=== PATIENT | female | born 1985 | race Two or more races ===

== ENCOUNTER 2017-01-04 08:18 | Emergency (ER) | payer MEDICAID ==
[~2017-01-04] VITALS: Ht 157.5 cm; Wt 75.3 kg
[2017-01-04 09:30] VITALS: BP 111/74
== END 2017-01-04 09:30 | disposition home or self-care (01) ==
LOC: ED 08:18
DX: J03.90 Acute tonsillitis, unspecified (principal)
CPT/HCPCS: J0561; J1100; J1885

== ENCOUNTER 2017-04-06 08:38 | Emergency (ER) | payer MEDICAID ==
[2017-04-06 09:53] LABS: CALCIUM 8.5 mg/dL (8.5-10.1); CARBON DIOXIDE 30.3 mmol/L (21-32); CHLORIDE SERUM 105 mmol/L (98-107); CREATININE SERUM 0.9 mg/dL (0.6-1.0); GFR1 > 60 mL/min; GLUCOSE SERUM 95 mg/dL (74-106); POTASSIUM SERUM 3.9 mmol/L (3.5-5.1); SODIUM SERUM 140 mmol/L (136-145)
[2017-04-06 09:59] LABS: ALBUMIN 3.4 g/dL (3.4-5.0); ALKALINE PHOSPHATASE 80 U/L (46-116); ALT/SGPT 16 U/L (14-59); AST/SGOT 13 U/L (15-37); BILIRUBIN TOTAL 0.3 mg/dL (0.20-1.00); TOTAL PROTEIN, SERUM 7.3 g/dL (6.4-8.2)
[2017-04-06 10:00] LABS: BASOPHIL % 0.4 % (0-2); PLATELET COUNT 307 x10^3mcL (130-400); RED CELL DISTRIBUTION WIDTH 14.4 % (11.5-14.5)
[2017-04-06 10:07] LABS: T3 TOTAL 1.2 ng/mL
[2017-04-06 10:24] LABS: FREE T4 0.91 ng/dL (0.76-1.46); FREE THYROXINE INDEX 2.6 ug/dL (1.4-4.5); T4(THYROXINE) 7.6 ug/dL (4.7-13.3)
[2017-04-06 11:35] VITALS: BP 112/71
[2017-04-06 11:48] LABS: AMPHETAMINE QUAL UR NONE DETECTED (NEG <=1000)
== END 2017-04-06 11:34 | disposition home or self-care (01) ==
LOC: ED 08:38
PROVIDERS: Emergency Medicine
DX: R07.89 Other chest pain (principal); R06.02 Shortness of breath; Z86.2 Personal history of diseases of the blood and blood-forming organs and certain disorders involving the immune mechanism
CPT/HCPCS: 36415; 83880; 84439; Q0092

== ENCOUNTER 2017-10-27 13:41 | Emergency (ER) | payer MEDICAID ==
[~2017-10-27] VITALS: Ht 157.5 cm; Wt 80.3 kg
[2017-10-27 14:02] VITALS: BP 126/72; Ht 157.5 cm; Wt 80.3 kg
== END 2017-10-27 15:23 | disposition home or self-care (01) ==
LOC: ED 13:41
DX: J02.0 Streptococcal pharyngitis (principal); Z86.2 Personal history of diseases of the blood and blood-forming organs and certain disorders involving the immune mechanism
CPT/HCPCS: J1100

== ENCOUNTER 2017-11-12 09:18 | Emergency (ER) | payer OTHER ==
[~2017-11-12] VITALS: Ht 157.5 cm; Wt 81.2 kg
[2017-11-12 09:23] VITALS: Ht 157.5 cm; Wt 81.2 kg
[2017-11-12 10:13] LABS: BASOPHIL % 0.4 % (0-2); PLATELET COUNT 315 x10^3mcL (130-400); RED CELL DISTRIBUTION WIDTH 14.5 % (11.5-14.5)
[2017-11-12 10:24] LABS: CALCIUM 8.4 mg/dL (8.5-10.1); CARBON DIOXIDE 29.9 mmol/L (21-32); CHLORIDE SERUM 107 mmol/L (98-107); CREATININE SERUM 0.9 mg/dL (0.6-1.0); GFR1 > 60 mL/min; GLUCOSE SERUM 85 mg/dL (74-106); POTASSIUM SERUM 3.9 mmol/L (3.5-5.1); SODIUM SERUM 143 mmol/L (136-145)
[2017-11-12 12:32] VITALS: BP 104/68
== END 2017-11-12 12:32 | disposition home or self-care (01) ==
LOC: ED 09:18
PROVIDERS: Emergency Medicine
DX: N93.8 Other specified abnormal uterine and vaginal bleeding (principal); Z86.2 Personal history of diseases of the blood and blood-forming organs and certain disorders involving the immune mechanism
CPT/HCPCS: 36415

== ENCOUNTER 2018-01-06 13:29 | Emergency (ER) | payer OTHER ==
[~2018-01-06] VITALS: Ht 157.5 cm; Wt 84.5 kg
[2018-01-06 13:42] VITALS: Ht 157.5 cm; Wt 84.5 kg
[2018-01-06 17:35] VITALS: BP 120/79
== END 2018-01-06 17:35 | disposition home or self-care (01) ==
LOC: ED 13:29
DX: R10.2 Pelvic and perineal pain (principal); G89.18 Other acute postprocedural pain; Z86.2 Personal history of diseases of the blood and blood-forming organs and certain disorders involving the immune mechanism
CPT/HCPCS: J1885; Q0162

== ENCOUNTER 2018-11-19 20:21 | Emergency (ER) | payer OTHER ==
[~2018-11-19] VITALS: Ht 157.5 cm; Wt 74.4 kg
[2018-11-19 20:23] VITALS: Ht 157.5 cm; Wt 74.4 kg
[2018-11-19 21:53] LABS: BASOPHIL % 0.6 % (0-2); PLATELET COUNT 324 x10^3mcL (130-400); RED CELL DISTRIBUTION WIDTH 14.3 % (11.5-14.5)
[2018-11-19 22:06] LABS: CALCIUM 9.2 mg/dL (8.5-10.1); CARBON DIOXIDE 22.4 mmol/L (21-32); CHLORIDE SERUM 107 mmol/L (98-107); GFR1 > 60 mL/min; GLUCOSE SERUM 92 mg/dL (74-106); POTASSIUM SERUM 3.6 mmol/L (3.5-5.1); SODIUM SERUM 143 mmol/L (136-145)
[2018-11-19 22:09] LABS: ALBUMIN 3.6 g/dL (3.4-5.0); ALKALINE PHOSPHATASE 106 U/L (46-116); ALT/SGPT 17 U/L (14-59); AST/SGOT 9 U/L (15-37); BILIRUBIN TOTAL 0.82 mg/dL (0.20-1.00); LIPASE 108 IU/L (73-393); TOTAL PROTEIN, SERUM 7.7 g/dL (6.4-8.2)
[2018-11-20 01:21] VITALS: BP 95/60
== END 2018-11-20 01:21 | disposition home or self-care (01) ==
LOC: ED 20:21
PROVIDERS: Specialist
DX: R11.10 Vomiting, unspecified (principal); R19.7 Diarrhea, unspecified; Z98.51 Tubal ligation status; Z86.2 Personal history of diseases of the blood and blood-forming organs and certain disorders involving the immune mechanism
CPT/HCPCS: J1885; J2405; J3010; J7030; Q0092

== ENCOUNTER 2020-01-04 08:11 | Emergency (ER) | payer OTHER ==
[2020-01-04 08:22] VITALS: Ht 157.5 cm
[2020-01-04 10:23] VITALS: BP 108/73
== END 2020-01-04 10:23 | disposition home or self-care (01) ==
LOC: ED 08:11
DX: J02.9 Acute pharyngitis, unspecified (principal)
CPT/HCPCS: J0561; J1100

== ENCOUNTER 2020-03-25 09:47 | Emergency (ER) | payer OTHER ==
[~2020-03-25] VITALS: Ht 157.5 cm; Wt 89.4 kg
[2020-03-25 10:32] VITALS: BP 128/37
== END 2020-03-25 10:32 | disposition home or self-care (01) ==
LOC: ED 09:47
DX: F41.9 Anxiety disorder, unspecified (principal); Z98.51 Tubal ligation status; Z86.2 Personal history of diseases of the blood and blood-forming organs and certain disorders involving the immune mechanism

== ENCOUNTER 2020-06-26 10:49 | Emergency (ER) | payer OTHER ==
[~2020-06-26] VITALS: Ht 157.5 cm; Wt 86.6 kg
[2020-06-26 11:03] VITALS: BP 126/66; Ht 157.5 cm; Wt 86.6 kg
== END 2020-06-26 14:11 | disposition home or self-care (01) ==
LOC: ED 10:49
DX: J03.90 Acute tonsillitis, unspecified (principal)
CPT/HCPCS: J0561; J1100